=== PATIENT | male | born 1940 | race Caucasian/White ===

== ENCOUNTER 2020-01-20 07:57 | Day surgery (SDC) | payer MEDICARE, OTHER ==
[~2020-01-20] VITALS: Ht 177.8 cm; Wt 88.5 kg
[~2020-01-20 07:57] MED LIST: AMLO5TAB15 PO; ASPI-404 PO; ATOR40TA52 PO; FENO5TAB PO; FOLI1TAB6 PO; LISI-646 PO; METO-6 PO; OMEG100078 PO
[2020-01-20] MEDS ORDERED: LIDOCAINE 1% HCL (LOCAL ANESTH.) INJ 20ML MDV ONE (08:49)
[2020-01-20] MEDS ORDERED: MIDAZOLAM HCL 1MG/1ML-2 ML VIAL ONE (09:04)
[2020-01-20] MEDS ORDERED: fentaNYL CITRATE 100 MCG/2 ML VL ONE (09:04)
[2020-01-20] MEDS ORDERED: NEOSTIGMINE 1 MG/ML INJ (10mg/10ML VIAL) ONE (09:05)
[2020-01-20] MEDS ORDERED: ONDANSETRON HCL 4 MG/2 ML VIAL ONE (09:05)
[2020-01-20] MEDS ORDERED: PROPOFOL 10 MG/ML 20 ML IV ONE (09:05)
[2020-01-20] MEDS ORDERED: MEPERIDINE HCL (25 MG/ML) 1ML VIAL ONE (09:05)
[2020-01-20] MEDS ORDERED: SODIUM CHLORIDE LOCK 10 ML ONE (09:05)
[2020-01-20] MEDS ORDERED: GLYCOPYRROLATE 0.2 MG/ML 1ML VIAL ONE (09:05)
[2020-01-20] MEDS ORDERED: ROCURONIUM 10MG/ML 10ML VIAL IV ONE (09:05)
[2020-01-20] MEDS ORDERED: SUCCINYLCHOLINE CHLORIDE 20 MG/ML 10ML VIAL IV ONE (09:09)
[2020-01-20] MEDS ORDERED: levoFLOXacin 500MG 100 ML IV ONE (09:14)
[2020-01-20] MEDS ORDERED: MORPHINE SULFATE 4 MG/ML SYR/VIAL IV PRN (09:15)
[2020-01-20] MEDS ORDERED: HYDROmorphone HCL 2 MG/ML VL IV PRN (09:15)
[2020-01-20] MEDS ORDERED: fentaNYL CITRATE 100 MCG/2 ML VL IV PRN (09:15)
[2020-01-20] MEDS ORDERED: LIDOCAINE HCL 100 MG/5ML (2%) SYRG INJ IV ONE (09:56)
[2020-01-20 13:06] VITALS: BP 131/56
== END 2020-01-20 13:25 | disposition home or self-care (01) ==
LOC: SUR 07:57
PROVIDERS: ATTEND Surgery
DX: K40.90 Unilateral inguinal hernia, without obstruction or gangrene, not specified as recurrent (principal); E66.9 Obesity, unspecified; I10 Essential (primary) hypertension; Z68.29 Body mass index [BMI] 29.0-29.9, adult; Z98.890 Other specified postprocedural states; Z88.0 Allergy status to penicillin; Z85.46 Personal history of malignant neoplasm of prostate; Z87.891 Personal history of nicotine dependence; Z11.59 Encounter for screening for other viral diseases
CPT/HCPCS: 49650; C1713; J0330; J1956; J2001; J2175; J2250; J2405; J2704; J3010; J7030; U0003